=== PATIENT | female | born 1990 | race African-American/Black ===

== ENCOUNTER 2024-07-01 23:36 | Emergency (ER) | payer MEDICAID ==
[~2024-07-01] VITALS: Ht 157.5 cm; Wt 83.2 kg
[2024-07-02 00:04] VITALS: BP 147/84; PULSE 72; RESP 18; TEMP 98.1; O2SAT 100
== END 2024-07-02 00:59 | disposition home or self-care (01) ==
LOC: EMS 23:36
DX: S60.311A Abrasion of right thumb, initial encounter (principal); X58.XXXA Exposure to other specified factors, initial encounter; Y93.89 Activity, other specified; Y92.89 Other specified places as the place of occurrence of the external cause; Y99.0 Civilian activity done for income or pay
CPT/HCPCS: 99281; Z7502

== ENCOUNTER → 2025-02-02 | Outpatient (CLI) | payer OTHER | END | disposition home or self-care (01) | LOC: RADMN 16:01 | PROVIDERS: ATTEND Internal Medicine | DX: Z86.11 Personal history of tuberculosis (principal); M41.84 Other forms of scoliosis, thoracic region | CPT/HCPCS: 71045 ==